=== PATIENT | male | born 1960 ===

== ENCOUNTER 2018-08-15 09:19 | Day surgery (SDC) | payer BC ==
[2018-08-13 12:20] VITALS: BMI 33.3
[2018-08-15 10:13] LABS: BASO % 0.7 % (0.0-2.0); EOS # 0.2 K/uL (0.0-0.7); EOS % 2.9 % (0.0-4.0); HEMOGLOBIN 14.9 g/dL (12.0-18.0); LYMPH # 2.1 K/uL (1.0-4.3); LYMPH % 32.5 % (20.0-40.0); MEAN CELL VOLUME 87.8 fL (80.0-94.0); MEAN CORPUSCULAR HEMOGLOBIN 30.2 pg (27.0-31.0); MEAN CORPUSCULAR HGB CONC 34.4 g/dL (33.0-37.0); MEAN PLATELET VOLUME 9.7 fL (7.2-11.7); MONO # 0.5 K/uL (0.0-0.8); MONO % 8.2 % (0.0-10.0); NEUT # 3.6 K/uL (1.8-7.0); NEUT % 55.7 % (50.0-75.0); NRBC % 0.2 % (0.0-2.0); RBC 4.94 Mil/uL (4.40-5.90); RED CELL DISTRIBUTION WIDTH 14.2 % (11.5-14.5); WHITE BLOOD COUNT 6.5 K/uL (4.8-10.8)
[2018-08-15 10:26] LABS: BLOOD UREA NITROGEN 20 mg/dL (9-20); CALCIUM 9.3 mg/dl (8.6-10.4); GFR NON-AFRICAN AMERICAN > 60
[2018-08-15] MEDS ORDERED: Ciprofloxacin 400mg/200ml D5W 0 MG/0 ML BAG IVPB ONE (10:45)
[2018-08-15] MEDS ORDERED: Iohexol 240 (50 ml) ONE (10:46)
[2018-08-15] MEDS ORDERED: Lidocaine 2% Jelly (Uro-Jet) ONE (10:46)
[2018-08-15] MEDS ORDERED: cefTRIAXone 1 gm 1 GM/100 ML BAG IVPB ONE (10:46)
[2018-08-15] MEDS ORDERED: Midazolam 2 MG/2 ML VIAL ONE (11:24)
[2018-08-15] MEDS ORDERED: Propofol 10 mg/ml Inj (20 ML) ONE (11:25)
[2018-08-15] MEDS ORDERED: HYDROmorphone 0.5 mg/0.5 ml ISec IVP PRN (12:36)
[2018-08-15] MEDS: HYDROmorphone 0.5 mg/0.5 ml ISec IVP PRN ×4 (12:56→13:26)
[2018-08-15 15:45] VITALS: BP 131/79; PULSE 85; RESP 18; TEMP 97.9; O2SAT 97
--- NOTE | 2018-08-16 14:29 | CARD ---
APPROVED REPORT Date of service: 08/15/2018 EKG Measurement Heart [id number] [place] 178P [id number] <Conclusion> Normal sinus rhythm Normal ECG
--- NOTE | 2018-09-03 21:43 | OP ---
PROCEDURE DATE: 08/15/2018 PREOPERATIVE DIAGNOSES: Bladder stone, prostatic hypertrophy. POSTOPERATIVE DIAGNOSES: Bladder stone, prostatic hypertrophy, and multiple urethral strictures. PROCEDURES: Cystoscopy, dilatation and vesicolithotripsy. DESCRIPTION OF PROCEDURE: While the patient in lithotomy position and after starting anesthesia, genitalia were prepped and draped in a sterile fashion. Cysto was performed under direct vision which revealed the patient has submeatal stenosis, dilated. Also multiple strictures dilated. The bladder itself trabeculated. No tumor. Stone sitting behind the median lobe and moving around has irregular shape. The prostate large median lobe blocking the trigonal area and bilateral lobe enlargement. Prostatic urethra 4.5 cm. Using holmium laser, the stone was fragmented into multiple pieces and evacuated. The patient tolerated the procedure well. After removing the stone, the patient had bleeding and irrigated a few times. A #22 two-way Doan was inserted. The patient was transferred to the recovery room in stable condition. Marilyn Roy MD
== END 2018-08-15 15:45 | disposition home or self-care (01) ==
LOC: C.SDS 09:19
PROVIDERS: ATTEND Specialist
DX: N40.1 Benign prostatic hyperplasia with lower urinary tract symptoms (principal); N20.1 Calculus of ureter; N21.0 Calculus in bladder; N40.0 Benign prostatic hyperplasia without lower urinary tract symptoms; N35.919 Unspecified urethral stricture, male, unspecified site
CPT/HCPCS: 36415; 51050; 80048; 82365; 85025; 88300; 93005; A4358; J0696; J1170; J2405

== ENCOUNTER 2018-08-16 09:39 | Emergency (ER) | payer BC ==
[2018-08-16 09:39] VITALS: BMI 33.3
[2018-08-16 09:50] VITALS: BP 160/88; PULSE 99; RESP 19; TEMP 99.1; O2SAT 95
--- NOTE | 2018-08-16 10:38 | C.PDOC ---
History Of Present Illness 57 year old male presents to ED for antonio removal. Patient had antonio placed 2 days ago by urologist for bladder stone. States he was instructed to remove antonio at home, but he was afraid to do it on his own so he came here to the ER. Patient denies any other complaints. Time Seen by Provider: 08/16/18 09:57 Chief Complaint (Nursing): Male Genitourinary History Per: Patient History/Exam Limitations: no limitations Onset/Duration Of Symptoms: Days Current Symptoms Are (Timing): Still Present Past Medical History Reviewed: Historical Data, Nursing Documentation, Vital Signs Vital Signs: Last Vital Signs Temp 99.1 F 08/16/18 09:49 Pulse 99 H 08/16/18 09:49 Resp 19 08/16/18 09:49 BP 160/88 H 08/16/18 09:49 Pulse Ox 95 08/16/18 09:49 Primary Care Provider: Bob Peterson Surg - Medical History PMH: HTN Denies: Chronic Kidney Disease Surgical History: - blur Group Procedures INJECT/INFUSE NEC (09/14/06) Family History: States: No Known Family Hx - Social History Hx Alcohol Use: No Hx Substance Use: No - Immunization History Hx Tetanus Toxoid Vaccination: No Hx Influenza Vaccination: No Hx Pneumococcal Vaccination: No Review Of Systems Except As Marked, All Systems Reviewed And Found Negative. Constitutional: Negative for: Fever Gastrointestinal: Negative for: Nausea, Vomiting Genitourinary: Positive for: Other (antonio) Physical Exam - Physical Exam Appears: Non-toxic, No Acute Distress Skin: Warm, Dry Head: Atraumatic, Normacephalic Eye(s): bilateral: Normal Inspection Oral Mucosa: Moist Neck: Supple Cardiovascular: Rhythm Regular Respiratory: Normal Breath Sounds Gastrointestinal/Abdominal: Soft, No Tenderness Extremity: Bilateral: Atraumatic, Normal ROM Neurological/Psych: Oriented x3, Normal Speech ED Course And Treatment O2 Sat by Pulse Oximetry: 95 (RA) Pulse Ox Interpretation: Normal Progress Note: Urine is clear with mild pinkish color. Patient states he feels fine. Antonio was removed with no complications. Patient will be discharged home. Disposition - Disposition Disposition: HOME/ ROUTINE Disposition Time: 10:38 Condition: STABLE Additional Instructions: follow up with PMD and Urologist as previously instructed. Return to ED if feel worse. Instructions: Antonio Catheter, Male Forms: [employer] (Hong Konger) - Clinical Impression Clinical Impression: Encounter for Antonio catheter removal - PA / CLAY MOLDER / Resident Statement MD/DO has reviewed & agrees with the documentation as recorded. - Scribe Statement The provider has reviewed the documentation as recorded by the Scribe Nadja Howell All medical record entries made by the Scribe were at my direction and personally dictated by me. I have reviewed the chart and agree that the record accurately reflects my personal performance of the history, physical exam, medical decision making, and the department course for this patient. I have also personally directed, reviewed, and agree with the discharge instructions and disposition.
== END 2018-08-16 10:42 | disposition home or self-care (01) ==
LOC: C.ER 09:39
DX: Z46.6 Encounter for fitting and adjustment of urinary device (principal)

== ENCOUNTER 2018-09-06 19:28 | Inpatient (IN) | payer BC ==
[2018-09-06 19:29] VITALS: BMI 33.3
--- NOTE | 2018-09-06 20:22 | C.PDOC ---
History Of Present Illness 58 year old male presents to ED with complaint of persistent scrotal pain for the past week. Patient was previously on an unknown antibiotic prescribed by Dr. Degroot. Patient was evaluated for the same symptoms at [facility] on 09/05 for the same symptoms and started on cipro. Patient has no relief with Motrin 800 mg or Tylenol. Patient denies fever, nausea, and vomiting. PERSIST SCROTAL PAIN X 1 WEEK. WAS ON PREVIOUS UNK ABX BY DR DEGROOT, EVAL @ [facility] 09/05 FOR SAME STARTED ON CIPRO. NO PAIN RELIEF W MOTRIN 800 MG, TYLENOL. NO FEVER, NV. EXAM MILD DIST NONTOXIC +SCROTAL SWELL NO LESIONS, DC REMAINDER NEG Time Seen by Provider: 09/06/18 20:13 Chief Complaint (Nursing): Male Genitourinary History Per: Patient History/Exam Limitations: no limitations Onset/Duration Of Symptoms: Days (7) Current Symptoms Are (Timing): Still Present Quality Of Discomfort: "Pain" Associated Symptoms: denies: Fever, Nausea, Vomiting Alleviating Factors: denies: OTC Meds Past Medical History Reviewed: Historical Data, Nursing Documentation, Vital Signs Vital Signs: Last Vital Signs Temp 98.6 F 09/06/18 19:36 Pulse 87 09/06/18 19:36 Resp 20 09/06/18 19:36 BP 144/80 09/06/18 19:36 Pulse Ox 96 09/06/18 19:36 Primary Care Provider: Bob Peterson Surg - Medical History PMH: HTN Denies: Chronic Kidney Disease Surgical History: No Surg Hx - [facility] Procedures INJECT/INFUSE NEC (09/14/06) Family History: States: Unknown Family Hx - Social History Hx Alcohol Use: No Hx Substance Use: No - Immunization History Hx Tetanus Toxoid Vaccination: No Hx Influenza Vaccination: No Hx Pneumococcal Vaccination: No Review Of Systems Except As Marked, All Systems Reviewed And Found Negative. Genitourinary: Positive for: Scrotal Pain Physical Exam - Physical Exam Appears: Non-toxic, Other (mild distress) Skin: Normal Color, Warm, Dry Head: Atraumatic, Normacephalic Eye(s): bilateral: Normal Inspection Oral Mucosa: Moist Neck: Normal ROM, Supple Chest: Symmetrical, No Deformity Cardiovascular: Rhythm Regular, No Murmur Respiratory: No Accessory Muscle Use, No Rales, No Rhonchi, No Wheezing, Other (NARD) Gastrointestinal/Abdominal: Soft, No Tenderness Male Genital: Scrotal Swelling, No Other (lesions or discharge) Extremity: Capillary Refill (<2 seconds) Extremity: Bilateral: Atraumatic, Normal Color And Temperature, Normal ROM Pulses: Left Dorsalis Pedis: Normal, Right Dorsalis Pedis: Normal Neurological/Psych: Oriented x3, Normal Speech, Normal Cognition, Normal Motor, Normal Sensation Gait: Steady ED Course And Treatment - Laboratory Results Result Diagrams: 09/06/18 21:33 09/06/18 21:33 O2 Sat by Pulse Oximetry: 96 (in RA) Pulse Ox Interpretation: Normal Progress Note: BMP, CBC, and UA ordered for patient. Testicular US ordered for patient. Patient given Morphine IVP. Progress - Re-Evaluation Re-evaluation Note: 09/06/18 20:19 DR DEGROOT REQUESTING REPEAT TEST US, LABS. AGREES W PAIN MGMT PLAN 09/06/18 22:46 US REPORT REVIEWED. RECUR TEST PAIN, PT REFUSING DC HOME. PERSIST ELEVATED WBC DESPITE [address] DEGROOT 09/06/18 22:59 D/W DR DEGROOT WILL ADMIT - Data Reviewed Data Reviewed: Lab, Diagnostic imaging, Old records Disposition Counseled Patient/Family Regarding: Studies Performed, Diagnosis - Disposition Disposition: HOSPITALIZED Disposition Time: 22:59 Condition: STABLE Forms: [facility] (Hungarian) - POA Present On Arrival: None - Clinical Impression Clinical Impression: Epididymitis, Intractable pain - Scribe Statement The provider has reviewed the documentation as recorded by the Scribe (Addie Daniels) All medical record entries made by the Scribe were at my direction and personally dictated by me. I have reviewed the chart and agree that the record accurately reflects my personal performance of the history, physical exam, medical decision making, and the department course for this patient. I have also personally directed, reviewed, and agree with the discharge instructions and disposition.
[2018-09-06 21:39] LABS: BASO % 0.3 % (0.0-2.0); EOS % 0.3 % (0.0-4.0); HEMOGLOBIN 13.9 g/dL (12.0-18.0); LYMPH # 1.2 K/uL (1.0-4.3); LYMPH % 7.5 % (20.0-40.0); MEAN CELL VOLUME 87.1 fL (80.0-94.0); MEAN CORPUSCULAR HGB CONC 33.3 g/dL (33.0-37.0); MEAN PLATELET VOLUME 8.9 fL (7.2-11.7); MONO # 1.1 K/uL (0.0-0.8); MONO % 6.6 % (0.0-10.0); NEUT # 13.5 K/uL (1.8-7.0); NEUT % 85.3 % (50.0-75.0); PLATELET COUNT 247 K/uL (130-400); RBC 4.78 Mil/uL (4.40-5.90); RED CELL DISTRIBUTION WIDTH 14.4 % (11.5-14.5); WHITE BLOOD COUNT 15.8 K/uL (4.8-10.8)
[2018-09-06 21:51] LABS: BLOOD UREA NITROGEN 13 mg/dL (9-20); CALCIUM 9.1 mg/dl (8.6-10.4); GFR NON-AFRICAN AMERICAN > 60
[2018-09-06 22:32] LABS: LYMPHOCYTE 4 % (20-40); MONOCYTE 3 % (0-10); NEUTROPHIL 93 % (50-75); PLATELET ESTIMATE NORMAL (NORMAL); TOTAL CELLS COUNTED 100
[2018-09-06] MEDS ORDERED: Oxycodone/Acetaminophen 5/325 mg Tab PO STA (22:46)
[2018-09-06] MEDS ORDERED: Oxycodone/Acetaminophen 5/325 mg Tab ONE (23:12)
[2018-09-06] MEDS ORDERED: Ciprofloxacin 400mg/200ml D5W 400 MG/200 ML BAG IVPB SCH (23:30)
[2018-09-06] MEDS: Dextrose 5%/0.45% NS 1,000 ML IV SCH (23:51)
[2018-09-06] MEDS ORDERED: Ciprofloxacin 400mg/200ml D5W 400 MG/200 ML BAG IVPB ONE (23:51)
[2018-09-07] MEDS ORDERED: Oxycodone/Acetaminophen 5/325 mg Tab PO SCH
[2018-09-07] MEDS ORDERED: Morphine 4 MG/ML VIAL ONE (00:12)
[2018-09-07] MEDS: Dextrose 5%/0.45% NS 1,000 ML IV SCH ×3 (08:05→20:10)
[2018-09-07] MEDS: Oxycodone/Acetaminophen 5/325 mg Tab PO PRN ×2 (08:27→15:53)
[2018-09-07] MEDS ORDERED: cefTRIAXone IV 1 gm in Dextros 50 ML IVPB SCH (10:00)
--- NOTE | 2018-09-07 11:51 | US ---
Date of service: 09/06/2018 HISTORY: PAIN SWELLING TECHNIQUE: Realtime sonography through the scrotum with color and doppler flow. COMPARISON: None Available. FINDINGS: RIGHT TESTICLE: Measures 4.8 x 3.4 x 3 cm. Normal echotexture and flow. RIGHT EPIDIDYMIS: Epididymal head measures 1.3 x 0.84 cm. There is a epididymal cyst measures 0.5 x 0.8 x 0.9 centimeter. There is also complex cyst at the tail of the epididymis measures 2.1 x 1.8 x 2.2 centimeter. There is a partially calcified lesion at or adjacent to the epididymis measures 1.1 x 1 x 0.9 centimeter. LEFT TESTICLE: Measures 5.1 x 2.2 x 3.2 cm. Normal echotexture and flow. LEFT EPIDIDYMIS: Epididymal head measures 1.3 x 0.8 cm. Grossly unremarkable appearance with normal flow. HYDROCELE: There is a complex hydrocele with septation noted in the right scrotum. There is also complex hydrocele in the left scrotum with low-level echoes. VARICOCELE: None. OTHER FINDINGS: None. IMPRESSION: Heterogeneous right epididymis enlarged and demonstrate hyperemia and contains complex lesions. Findings suspicious for epididymitis. Partially calcified lesion at or adjacent to the right epididymis may represent a sequela of prior infection or hematoma. Complex moderate amount of hydrocele noted contains septation on the right side of the scrotum and low-level echoes on the left side. Findings are also likely represent sequela of epididymitis. Thickening of the scrotal skin. Preliminary report was submitted by [facility] Radiology contains concordant findings.
--- NOTE | 2018-09-07 16:31 | CP.PCM.CON ---
History of Present Illness - History of Present Illness History of Present Illness: 58 year old male presents to ED with complaint of persistent scrotal pain and swelling for the past week. Patient is post op cystoscopy and bladder stone surgery as out pt Patient was previously on an unknown antibiotic prescribed by Dr. Keys. Patient was evaluated for the same symptoms [place] [facility] [place] for the same symptoms and started on cipro. Patient has no relief with Motrin 800 mg or Tylenol. Patient denies fever, nausea, and vomiting. Referred for ID eval and antibiotic management as he failed out pt rx PMH HTN SH non drinker non smoker FH N/C NKDA Review of Systems - Review of Systems All systems: reviewed and no additional remarkable complaints except - Constitutional Constitutional: As Per HPI - EENT Eyes: absent: As Per HPI, Blind Spots, Blurred Vision, Change in Vision, Decreased Night Vision, Diplopia, Discharge, Dry Eye, Exophthalmos, Floaters, I rritation, Itchy Eyes, Loss of Peripheral Vision, Pain, Photophobia, Requires Corrective Lenses, Sees Flashes, Spots in Vision, Tunnel Vision, Other Visual Disturbances, Loss of Vision, Other Ears: absent: As Per HPI, Decreased Hearing, Ear Discharge, Ear Pain, Tinnitus, Abnormal Hearing, Disequilibrium, Dizziness, Other Nose/Mouth/Throat: absent: As Per HPI, Epistaxis, Nasal Congestion, Nasal Discharge, Nasal Obstruction, Nasal Trauma, Nose Pain, Post Nasal Drip, Sinus Pain, Sinus Pressure, Bleeding Gums, Change in Voice, Dental Pain, Dry Mouth, Dysphagia, Halitosis, Hoarsness, Lip Swelling, Mouth Lesions, Mouth Pain, Odynophagia, Sore Throat, Throat Swelling, Tongue Swelling, Facial Pain, Neck Pain, Neck Mass, Other - Cardiovascular Cardiovascular: absent: As Per HPI, Acrocyanosis, Chest Pain, Chest Pain at Rest, Chest Pain with Activity, Claudication, Diaphoresis, Dyspnea, Dyspnea on Exertion, Edema, Irregular Heart Rhythm, Pain Radiating to Arm/Neck/Jaw, Leg Edema, Leg Ulcers, Lightheadedness, Orthopnea, Palpitations, Paroxysmal Nocturnal Dyspnea, Pedal Edema, Radiating Pain, Rapid Heart Rate, Slow Heart Rate, Syncope, Other - Respiratory Respiratory: absent: As Per HPI, Cough, Dyspnea, Hemoptysis, Dyspnea on Exertion, Wheezing, Snoring, Stridor, Pain on Inspiration, Chest Congestion, Excessive Mucous Production, Change in Mucous Color, Pain with Coughing, Other - Gastrointestinal Gastrointestinal: absent: As Per HPI, Abdominal Pain, Belching, Bloating, Change in Bowel Habits, Change in Stool Character, Coffee Ground Emesis, Constipation, Cramping, Diarrhea, Dyspepsia, Dysphagia, Early Satiety, Excessive Flatus, Fecal Incontinence, Heartburn, Hematemesis, Hematochezia, Loose Stools, Melena, Nausea, Odynophagia, Temesmus, Vomiting, Other - Genitourinary Genitourinary: As Per HPI - Musculoskeletal Musculoskeletal: absent: As Per HPI, Abnormal Gait, Arthralgias, Atrophy, Back Pain, Deformity, Joint Swelling, Limited Range of Motion, Loss of Height, Muscle Cramps, Muscle Weakness, Myalgias, Neck Pain, Numbness, Radiating Pain into Limb, Stiffness, Tingling, Other - Integumentary Integumentary: absent: As Per HPI, Acne, Alopecia, Bleeding Lesions, Change in Hair, Change in Nails, Change in Pigmentation, Changing Lesions, Dry Skin, Erythema, Furuncle, Hirsutism, Lesions, New Lesions, Non-Healing Lesions, Photosensitivity, Pruritus, Rash, Skin Pain, Skin Ulcer, Sores, Striae, Swelling, Unusual Bruising, Wounds, Jaundice, Other - Neurological Neurological: absent: As Per HPI, Abnormal Gait, Abnormal Hearing, Abnormal Movements, Abnormal Speech, Behavioral Changes, Burning Sensations, Confusion, Convulsions, Disequilibrium, Dizziness, Numbness, Focal Weakness, Frequent Falls, Headaches, Lack of Coordination, Loss of Vision, Memory Loss, Paresthesias, Radicular Pain, Restless Legs, Sensory Deficit, Syncope, Tingling, Tremor, Vertigo, Weakness, Other Visual Disturbances, Other - Psychiatric Psychiatric: absent: As Per HPI, Abnormal Sleep Pattern, Anhedonia, Anxiety, Auditory Hallucinations, Behavioral Changes, Change in Appetite, Change in Libido, Confusion, Depression, Difficulty Concentrating, Hallucinations, Homicidal Ideation, Hopelessness, Irritability, Memory Loss, Mood Swings, Panic Attacks, Paranoia, Suicidal Ideation, Visual Hallucinations, Tactile Hallucinations, Other - Endocrine Endocrine: absent: As Per HPI, Change in Body Appearance, Change in Libido, Cold Intolorance, Deepening of Voice, Excessive Sweating, Fatigue, Flushing, Heat Intolorance, Increase in Ring/Shoe/Hat Size, Palpitations, Polydipsia, Polyphagia, Polyuria, Other - Hematologic/Lymphatic Hematologic: absent: As Per HPI, Easy Bleeding, Easy Bruising, Lymphadenopathy, Other Past Patient History - Infectious Disease Hx of Infectious Diseases: None - Past Medical History & Family History Past Medical History?: Yes - Past Social History Smoking Status: Former Smoker - CARDIAC Hx Hypertension: Yes - PULMONARY Hx Respiratory Disorders: No - NEUROLOGICAL Hx Neurological Disorder: No - HEENT Hx HEENT Problems: No - RENAL Hx Chronic Kidney Disease: No - ENDOCRINE/METABOLIC Hx Endocrine Disorders: No - HEMATOLOGICAL/ONCOLOGICAL Hx Blood Disorders: No - INTEGUMENTARY Hx Dermatological Problems: No - MUSCULOSKELETAL/RHEUMATOLOGICAL Hx Musculoskeletal Disorders: No - GASTROINTESTINAL Hx Gastrointestinal Disorders: No - GENITOURINARY/GYNECOLOGICAL Hx Genitourinary Disorders: Yes Hx Bladder Stone: Yes Hx Prostate Problems: Yes (BPH) - PSYCHIATRIC Hx Substance Use: No - SURGICAL HISTORY Hx Surgeries: Yes Other/Comment: HX: CYSTOSCOPY, EVACUATION OF BLADDER STONE, FULGURATION PROSTATIC BLEEDING(05/27/17). - ANESTHESIA Hx Anesthesia: Yes Hx Anesthesia Reactions: No Hx Malignant Hyperthermia: No Meds Allergies/Adverse Reactions: Allergies Allergy/AdvReac Type Severity Reaction Status Date / Time No Known Allergies Allergy Verified 09/06/18 19:44 - Medications Medications: Current Medications Hydromorphone HCl (Dilaudid) 2 mg IVP Q4 PRN PRN Reason: Pain, severe (8-10) Dextrose/Sodium Chloride (Dextrose 5%/0.45% Ns 1000 Ml) 1,000 mls @ 125 mls/hr IV .Q8H SKIP Last Admin: 09/07/18 08:05 Dose: 125 mls/hr Meropenem 1 gm/ Sodium (Chloride) 100 mls @ 100 mls/hr IVPB Q8H SKIP; Protocol Oxycodone/Acetaminophen (Percocet 5/325 Mg Tab) 2 tab PO Q6H PRN PRN Reason: Pain, moderate (4-7) Stop: 09/10/18 00:15 Last Admin: 09/07/18 15:53 Dose: 2 tab Physical Exam - Constitutional Appears: Non-toxic, No Acute Distress, Chronically Ill - Head Exam Head Exam: ATRAUMATIC, NORMOCEPHALIC - Eye Exam Eye Exam: PERRL. absent: Scleral icterus - ENT Exam ENT Exam: Mucous Membranes Dry, Normal External Ear Exam - Neck Exam Neck exam: Negative for: Lymphadenopathy - Respiratory Exam Respiratory Exam: Decreased Breath Sounds, Clear to Auscultation Bilateral - Cardiovascular Exam Cardiovascular Exam: REGULAR RHYTHM, +S1, +S2 - GI/Abdominal Exam GI & Abdominal Exam: Diminished Bowel Sounds, Soft, Tenderness - Rectal Exam Rectal Exam: Deferred - Exam Exam: Scrotal Swelling, Bladder Distension - Extremities Exam Extremities exam: Positive for: pedal pulses present. Negative for: calf tenderness, pedal edema, tenderness - Back Exam Back exam: absent: CVA tenderness (L), CVA tenderness (R) - Neurological Exam Neurological exam: Alert, CN II-XII Intact, Oriented x3, Reflexes Normal - Psychiatric Exam Psychiatric exam: Depressed - Skin Skin Exam: Dry, Intact Results - Vital Signs Recent Vital Signs: Last Vital Signs Temp 98.2 F 09/07/18 15:59 Pulse 82 09/07/18 15:59 Resp 20 09/07/18 15:59 BP 149/71 09/07/18 15:59 Pulse Ox 96 09/07/18 15:59 - Labs Result Diagrams: 09/06/18 21:33 09/06/18 21:33 Labs: Laboratory Results - last 24 hr 09/06/18 09/06/18 21:33 21:33 WBC 15.8 H D RBC 4.78 Hgb 13.9 Hct 41.6 MCV 87.1 MCH 29.0 MCHC 33.3 RDW 14.4 Plt Count 247 MPV 8.9 Neut % (Auto) 85.3 H Lymph % (Auto) 7.5 L [place] % (Auto) 6.6 Eos % (Auto) 0.3 Baso % (Auto) 0.3 Neut # (Auto) 13.5 H Lymph # (Auto) 1.2 [place] # (Auto) 1.1 H Eos # (Auto) 0.0 Baso # (Auto) 0.0 Neutrophils % (Manual) 93 H Lymphocytes % (Manual) 4 L Monocytes % (Manual) 3 Platelet Estimate Normal Sodium 135 Potassium 3.5 L Chloride 100 Carbon Dioxide 25 Anion Gap 14 BUN 13 Creatinine 0.7 L Est GFR ( Amer) > 60 Est GFR (Non-Af Amer) > 60 Random Glucose 140 H D Calcium 9.1 Assessment & Plan (1) Epididymitis Status: Acute (2) Intractable pain Status: Acute - Assessment and Plan (Free Text) Assessment: cystitis epididimo orchitis hydrocoele failure of out pt rx for UTI add Merrem for MDRO empirically
[2018-09-07] MEDS: Meropenem 1 GM in Sodium Chloride 0.9% 100 ML IVPB SCH (17:33)
[2018-09-07 19:19] LABS: SQUAMOUS EPITHIAL < 1 /hpf (0-5); URINE BILIRUBIN NEGATIVE (NEGATIVE); URINE BLOOD 2+ (NEGATIVE); URINE CLARITY Clear (Clear); URINE COLOR Yellow (YELLOW); URINE GLUCOSE (UA) NORMAL (Normal); URINE LEUKOCYTE ESTERASE NEG Leu/uL (Negative); URINE PROTEIN NEGATIVE (NEGATIVE); URINE UROBILINOGEN NORMAL mg/dL (0.2-1.0)
[2018-09-07] MEDS: Bisacodyl 5mg EC Tab PO SCH (22:00)
[2018-09-08] MEDS: Meropenem 1 GM in Sodium Chloride 0.9% 100 ML IVPB SCH ×3 (01:37→17:36)
[2018-09-08 08:23] LABS: HEMOGLOBIN 13.5 g/dL (12.0-18.0); MEAN CELL VOLUME 86.4 fL (80.0-94.0); MEAN CORPUSCULAR HEMOGLOBIN 29.7 pg (27.0-31.0); MEAN CORPUSCULAR HGB CONC 34.4 g/dL (33.0-37.0); MEAN PLATELET VOLUME 9.2 fL (7.2-11.7); RBC 4.55 Mil/uL (4.40-5.90); WHITE BLOOD COUNT 18.8 K/uL (4.8-10.8)
[2018-09-08 08:51] LABS: ALB/GLOB RATIO 1.2 (1.0-2.1); ALBUMIN 3.9 g/dL (3.5-5.0); ALT/SGPT 50 U/L (21-72); AST/SGOT 29 U/L (17-59); BLOOD UREA NITROGEN 14 mg/dL (9-20); CALCIUM 8.4 mg/dl (8.6-10.4); GFR NON-AFRICAN AMERICAN > 60
[2018-09-08] MEDS ORDERED: Magnesium Hydroxide Susp 30 ml UD PO ONE (10:59)
[2018-09-08] MEDS ORDERED: Albuterol-Ipratrop 3 mg / 0.5 (3 ml) UD INH PRN (11:20)
[2018-09-08] MEDS: Enoxaparin 40 mg Syringe SC SCH (11:48)
[2018-09-08] MEDS: Dextrose 5%/0.45% NS 1,000 ML IV SCH (14:16)
[2018-09-08] MEDS: Oxycodone/Acetaminophen 5/325 mg Tab PO PRN (17:34)
--- NOTE | 2018-09-08 19:24 | PN ---
DATE: 09/08/2018 The patient was admitted with intractable pain and right epididymitis with elevated white count, started on pain medication, did not respond to the regular Cipro IV, changed to Merrem and Vibramycin by Dr. Ren. His white count on admission was 15, today his white count went up to 18 and the patient still have severe pain and swelling of the scrotum increased with edema. The patient is voiding well, cannot move much because of the severe pain. Has constipation due to the codeine for the pain management. We will start him on the prophylactic Lovenox and sequence leg pressure, continue the IV, continue the antibiotics IV and follow up his CBC. The patient need to be an inpatient because he has severe infection, elevated white count and he is on IV antibiotics and need severe pain management. Marilyn Roy MD
[2018-09-08] MEDS: Bisacodyl 5mg EC Tab PO SCH (22:10)
[2018-09-09] MEDS: Meropenem 1 GM in Sodium Chloride 0.9% 100 ML IVPB SCH ×3 (01:05→17:37)
[2018-09-09] MEDS: Dextrose 5%/0.45% NS 1,000 ML IV SCH ×2 (04:45→21:33)
--- NOTE | 2018-09-09 07:15 | HP ---
CHIEF COMPLAINT: Severe right testicular pain, regular pain medicine could not control the pain, swelling of the right testicle for over eight days. PRESENT HISTORY: The patient has recent history of right epididymitis and was seen in the medical center before. They diagnosed him after ultrasound with severe epididymitis versus small hydrocele, treated with antibiotics and Motrin, did not respond. Last night, he started having severe pain, not controlled by any medication, came to the ER, evaluated. His white count was over 15,000 and the scrotal ultrasound revealed right epididymitis, swelling of the right testicle with mild reactive hydrocele. The patient has history of bladder stone, history of urethral stricture and large prostatic hypertrophy. He is on intermittent catheterization which he has had for years. One month ago, the patient had a stone removed from the bladder. He is voiding better than before, but he is still using catheterization and he is voiding with weak stream and frequency. No dysuria. Last urine culture was done in my office, it showed low growth of bacteria. ALLERGIES: NOT ALLERGIC TO ANY MEDICATION. PREVIOUS HISTORY: Except for the history of the prostatic hypertrophy and recurrent bladder stone, no surgical procedure was done before. FAMILY HISTORY: Unremarkable. REVIEW OF SYSTEMS: Unremarkable. PHYSICAL EXAMINATION: GENERAL: This patient in severe pain, not responding to even morphine. HEAD AND NECK: Within normal limits. CHEST: Clear. GENITOURINARY: The patient was in my office three days ago with same right testicular pain with swelling of the right testicle, typical epididymitis, he responded to medication in the beginning, but he is not responding to any pain medicine at this time. The patient given morphine in the ER and that has controlled the pain partially. Left testicle within normal limits and prostate large. Previous exam show over 90 g prostate. IMPRESSION: Right epididymitis, uncontrolled pain with regular medication, history of prostatic hypertrophy and outlet obstruction, question urinary tract infection. PLAN: Pain medications, antibiotics, Infection Disease consult and followup. Marilyn Roy MD
[2018-09-09 07:22] LABS: BASO % 0.2 % (0.0-2.0); EOS # 0.1 K/uL (0.0-0.7); EOS % 0.7 % (0.0-4.0); HEMOGLOBIN 13.2 g/dL (12.0-18.0); LYMPH # 1.9 K/uL (1.0-4.3); LYMPH % 11.7 % (20.0-40.0); MEAN CELL VOLUME 86.5 fL (80.0-94.0); MEAN CORPUSCULAR HEMOGLOBIN 29.6 pg (27.0-31.0); MEAN CORPUSCULAR HGB CONC 34.2 g/dL (33.0-37.0); MEAN PLATELET VOLUME 8.2 fL (7.2-11.7); MONO # 1.4 K/uL (0.0-0.8); MONO % 8.3 % (0.0-10.0); NEUT # 13.1 K/uL (1.8-7.0); NEUT % 79.1 % (50.0-75.0); RBC 4.45 Mil/uL (4.40-5.90); RED CELL DISTRIBUTION WIDTH 14.5 % (11.5-14.5); WHITE BLOOD COUNT 16.5 K/uL (4.8-10.8)
[2018-09-09] MEDS: Enoxaparin 40 mg Syringe SC SCH (09:35)
--- NOTE | 2018-09-09 10:33 | CT ---
Date of service: 09/09/2018 PROCEDURE: CT HEAD WITHOUT CONTRAST. HISTORY: sudden onset of blurred vision COMPARISON: In knee TECHNIQUE: Axial computed tomography images were obtained through the head/brain without intravenous contrast. Radiation dose: Total exam DLP = 1105.96 mGy-cm. This CT exam was performed using one or more of the following dose reduction techniques: Automated exposure control, adjustment of the mA and/or kV according to patient size, and/or use of iterative reconstruction technique. FINDINGS: HEMORRHAGE: No intracranial hemorrhage. BRAIN: There are mild chronic microangiopathic changes. There is no mass, mass effect or abnormal extra-axial fluid collection. There is no territorial infarction. The midline sagittal structures are normal. VENTRICLES: The ventricles are normal in size, shape and configuration. CALVARIUM: There is no calvarial fracture or extracranial soft tissue swelling. PARANASAL SINUSES: Predominantly clear. MASTOID AIR CELLS: Predominantly clear. OTHER FINDINGS: None. IMPRESSION: No acute intracranial abnormality.If there is a persistent focal neurologic deficit and an ongoing clinical concern for acute infarction, an MRI of the brain without intravenous contrast would be a more sensitive modality for evaluation of hyperacute/acute ischemic infarction. Mild chronic microangiopathic changes and mild age-related global parenchymal volume loss.
--- NOTE | 2018-09-09 12:18 | CP.PCM.PN ---
Subjective - Date & Time of Evaluation Date of Evaluation: 09/10/18 Time of Evaluation: 07:00 - Subjective Subjective: slow progress'c/o pain bilateral testes Objective - Vital Signs/Intake and Output Vital Signs (last 24 hours): Temp Pulse Resp BP Pulse Ox 97.8 F 94 H 20 115/70 94 L 09/09/18 09:00 09/09/18 09:00 09/09/18 08:27 09/09/18 09:00 09/09/18 08:27 Intake and Output: 09/09/18 09/09/18 06:59 18:59 Intake Total 920 Balance 920 - Medications Medications: Current Medications Albuterol/Ipratropium (Duoneb 3 Mg/0.5 Mg (3 Ml) Ud) 3 ml INH RQ6 PRN PRN Reason: atelectasis Bisacodyl (Dulcolax) 10 mg PO HS SKIP Last Admin: 09/08/18 22:10 Dose: 10 mg Doxycycline Hyclate (Doryx) 100 mg PO Q12H SKIP; Protocol Last Admin: 09/09/18 09:34 Dose: 100 mg Enoxaparin Sodium (Lovenox) 40 mg SC DAILY SKIP Last Admin: 09/09/18 09:35 Dose: 40 mg Hydromorphone HCl (Dilaudid) 2 mg IVP Q4 PRN PRN Reason: Pain, severe (8-10) Last Admin: 09/08/18 06:12 Dose: 2 mg Meropenem 1 gm/ Sodium (Chloride) 100 mls @ 100 mls/hr IVPB Q8H SKIP; Protocol Last Admin: 09/09/18 09:35 Dose: 100 mls/hr Dextrose/Sodium Chloride (Dextrose 5%/0.45% Ns 1000 Ml) 1,000 mls @ 60 mls/hr IV .[id number] SKIP Last Admin: 09/09/18 04:45 Dose: Not Given Oxycodone/Acetaminophen (Percocet 5/325 Mg Tab) 2 tab PO Q6H PRN PRN Reason: Pain, moderate (4-7) Stop: 09/10/18 21:25 Last Admin: 09/08/18 17:34 Dose: 2 tab - Labs Labs: 09/09/18 07:09 09/08/18 08:07 - Constitutional Appears: Non-toxic, Chronically Ill - Head Exam Head Exam: ATRAUMATIC, NORMAL INSPECTION, NORMOCEPHALIC - Eye Exam Eye Exam: EOMI, Normal appearance, PERRL Pupil Exam: NORMAL ACCOMODATION, PERRL - ENT Exam ENT Exam: Mucous Membranes Moist, Normal Exam - Neck Exam Neck Exam: Full ROM, Normal Inspection. absent: Lymphadenopathy - Respiratory Exam Respiratory Exam: Clear to Ausculation Bilateral, NORMAL BREATHING PATTERN - Cardiovascular Exam Cardiovascular Exam: REGULAR RHYTHM, +S1, +S2. absent: Murmur - GI/Abdominal Exam GI & Abdominal Exam: Soft, Normal Bowel Sounds. absent: Tenderness - Rectal Exam Rectal Exam: Deferred - Exam Exam: Scrotal Swelling - Extremities Exam Extremities Exam: Full ROM, Normal Capillary Refill, Normal Inspection. absent: Joint Swelling, Pedal Edema - Back Exam Back Exam: NORMAL INSPECTION - Neurological Exam Neurological Exam: Alert, Awake, CN II-XII Intact, Normal Gait, Oriented x3 - Psychiatric Exam Psychiatric exam: Normal Affect, Normal Mood - Skin Skin Exam: Dry, Intact, Normal Color, Warm Assessment and Plan (1) Epididymitis Status: Acute (2) Intractable pain Status: Acute - Assessment and Plan (Free Text) Assessment: cont IV rx failed out pt rx
[2018-09-09] MEDS ORDERED: Iohexol 240 (50 ml) PO ONE (13:30)
[2018-09-09] MEDS ORDERED: Iohexol 350mg/ml 100 ML ONE (15:53)
--- NOTE | 2018-09-09 18:24 | MRI ---
Date of service: 09/09/2018 PROCEDURE: MRI BRAIN WITHOUT CONTRAST HISTORY: sudden onset of double vision / blurred vision COMPARISON: CT head without contrast from 09/09/2018 TECHNIQUE: Multiplanar, multisequence MR images of the brain were obtained without intravenous contrast enhancement. FINDINGS: HEMORRHAGE: None DWI: No evidence of an acute or early subacute infarction. BRAIN PARENCHYMA: There are mild chronic microangiopathic changes. There is no mass, mass effect or abnormal extra-axial fluid collection. There is no territorial infarction. The midline sagittal structures are normal. VENTRICLES: There is mild age advanced global parenchymal volume loss and proportionate enlargement of the ventricles and cortical sulci. CRANIUM: Unremarkable. ORBITS: Grossly unremarkable. PARANASAL SINUSES/MASTOIDS: Clear VASCULAR SYSTEM: There are normal signal voids in the larger intracranial arteries. OTHER FINDINGS: None. IMPRESSION: No acute intracranial abnormality. Mild chronic microangiopathic changes and mild age advanced global parenchymal volume loss.
[2018-09-09] MEDS: Oxycodone/Acetaminophen 5/325 mg Tab PO PRN (19:34)
[2018-09-09] MEDS: Bisacodyl 5mg EC Tab PO SCH (21:33)
[2018-09-10] MEDS: Meropenem 1 GM in Sodium Chloride 0.9% 100 ML IVPB SCH ×3 (00:39→17:41)
[2018-09-10] MEDS: Enoxaparin 40 mg Syringe SC SCH (09:41)
--- NOTE | 2018-09-10 12:38 | CT ---
Date of service: 09/09/2018 PROCEDURE: CT Pelvis with contrast HISTORY: Rule out post interventional quite abcess, severe epididymitids , groin pain COMPARISON: None available. TECHNIQUE: Contiguous axial images of the pelvis with contrast. Coronal and sagittal reformats generated. Contrast dose: 74 cc Visipaque 320 contrast material. Radiation dose: Total exam DLP = 811.7 mGy-cm. This CT exam was performed using one or more of the following dose reduction techniques: Automated exposure control, adjustment of the mA and/or kV according to patient size, and/or use of iterative reconstruction technique. FINDINGS: BLADDER: Urinary bladder appears incompletely distended of which in part accounts for slight thick-walled appearance however muscular hypertrophy presumably contributes. The prostate gland is markedly enlarged and encroaches into the floor of the urinary bladder. Prostate gland is measures approximately 6.2 x 6.1 cm and exhibits heterogeneous parenchyma with scattered calcifications.. Findings likely due to BPH however clinical correlation with PSA recommended to exclude prostatic carcinoma. Note also that possibility of a lesion arising from the wall of the bladder floor cannot be excluded.. REPRODUCTIVE ORGANS: There is enlarged scrotum with subcutaneous scrotal edema; rule out cellulitis. There is also a moderate-sized right-sided hydrocele. There is any elliptical shaped complex soft tissue density which appears to contain both fluid and solid components measuring 7.4 x 5.2 cm.. Findings may represent orchitis and/or epididymis or possible abscess collection. VISUALIZED BOWEL: Evaluation of the bowel is somewhat limited due to incomplete visualization however note made of multiple colonic diverticula arising from the sigmoid and distal descending colon. Normal appendix. PERITONEUM: Unremarkable, as visualized. No free fluid. No free air. LYMPH NODES: Unremarkable. No enlarged lymph nodes. VASCULATURE: No aortic atherosclerotic calcification or mural plaque present. BONES: No fracture or focal lesion. OTHER FINDINGS: Small bilateral inguinal hernias right slightly larger than left with what appears represent granulation tissue and or fluid right more so than left. IMPRESSION: Enlarged scrotum with subcutaneous scrotal edema; rule out cellulitis. There is also a moderate-sized right-sided hydrocele. There is any elliptical shaped complex soft tissue density which appears to contain both fluid and solid components measuring 7.4 x 5.2 cm.. Findings may represent orchitis and/or epididymis or possible abscess collection
[2018-09-10] MEDS: Dextrose 5%/0.45% NS 1,000 ML IV SCH ×2 (13:15→15:15)
--- NOTE | 2018-09-10 17:19 | CP.PCM.PN ---
Subjective - Date & Time of Evaluation Date of Evaluation: 09/10/18 Time of Evaluation: 08:00 - Subjective Subjective: slow progress swelling and pain less cont rx for min 10-14 days Objective - Vital Signs/Intake and Output Vital Signs (last 24 hours): Temp Pulse Resp BP Pulse Ox 99.5 F 81 20 130/77 94 L 09/10/18 16:00 09/10/18 16:00 09/10/18 16:00 09/10/18 16:00 09/10/18 16:00 Intake and Output: 09/10/18 09/10/18 06:59 18:59 Intake Total 1100 1120 Output Total 800 400 Balance 300 720 - Medications Medications: Current Medications Albuterol/Ipratropium (Duoneb 3 Mg/0.5 Mg (3 Ml) Ud) 3 ml INH RQ6 PRN PRN Reason: atelectasis Last Admin: 09/09/18 13:30 Dose: 3 ml Bisacodyl (Dulcolax) 10 mg PO HS [facility] Last Admin: 09/09/18 21:33 Dose: Not Given Doxycycline Hyclate (Doryx) 100 mg PO Q12H SKIP; Protocol Last Admin: 09/10/18 09:41 Dose: 100 mg Enoxaparin Sodium (Lovenox) 40 mg SC DAILY [facility] Last Admin: 09/10/18 09:41 Dose: 40 mg Hydromorphone HCl (Dilaudid) 2 mg IVP Q4 PRN PRN Reason: Pain, severe (8-10) Last Admin: 09/08/18 06:12 Dose: 2 mg Meropenem 1 gm/ Sodium (Chloride) 100 mls @ 100 mls/hr IVPB Q8H [facility]; Protocol Last Admin: 09/10/18 09:42 Dose: 100 mls/hr Dextrose/Sodium Chloride (Dextrose 5%/0.45% Ns 1000 Ml) 1,000 mls @ 60 mls/hr IV .[id number] SKIP Last Admin: 09/10/18 15:15 Dose: Not Given Oxycodone/Acetaminophen (Percocet 5/325 Mg Tab) 2 tab PO Q6H PRN PRN Reason: Pain, moderate (4-7) Stop: 09/10/18 21:25 Last Admin: 09/09/18 19:34 Dose: 2 tab - Labs Labs: 09/09/18 07:09 09/08/18 08:07 - Constitutional Appears: Well, No Acute Distress, Chronically Ill - Head Exam Head Exam: ATRAUMATIC, NORMAL INSPECTION, NORMOCEPHALIC - Eye Exam Eye Exam: EOMI, Normal appearance, PERRL Pupil Exam: NORMAL ACCOMODATION, PERRL - ENT Exam ENT Exam: Mucous Membranes Moist, Normal Exam - Neck Exam Neck Exam: Full ROM, Normal Inspection. absent: Lymphadenopathy - Respiratory Exam Respiratory Exam: Clear to Ausculation Bilateral, NORMAL BREATHING PATTERN - Cardiovascular Exam Cardiovascular Exam: REGULAR RHYTHM, +S1, +S2. absent: Murmur - GI/Abdominal Exam GI & Abdominal Exam: Soft, Normal Bowel Sounds. absent: Tenderness - Rectal Exam Rectal Exam: NORMAL INSPECTION - Exam Exam: Scrotal Swelling External exam: NORMAL EXTERNAL EXAM - Extremities Exam Extremities Exam: Full ROM, Normal Capillary Refill, Normal Inspection. absent: Joint Swelling, Pedal Edema - Back Exam Back Exam: NORMAL INSPECTION - Neurological Exam Neurological Exam: Alert, Awake, CN II-XII Intact, Normal Gait, Oriented x3 - Psychiatric Exam Psychiatric exam: Normal Affect, Normal Mood - Skin Skin Exam: Dry, Intact, Normal Color, Warm Assessment and Plan (1) Epididymitis Status: Acute (2) Intractable pain Status: Acute (3) Orchitis and epididymitis Status: Acute - Assessment and Plan (Free Text) Assessment: cont rmpiric IV antibitics for 10 more days
[2018-09-10] MEDS: Bisacodyl 5mg EC Tab PO SCH (22:14)
[2018-09-11] MEDS: Meropenem 1 GM in Sodium Chloride 0.9% 100 ML IVPB SCH ×3 (01:52→16:58)
[2018-09-11] MEDS: Enoxaparin 40 mg Syringe SC SCH (10:05)
--- NOTE | 2018-09-11 13:05 | US ---
Date of service: 09/11/2018 HISTORY: f/u TECHNIQUE: Realtime sonography through the scrotum with color and doppler flow. COMPARISON: 09/06/2018. FINDINGS: RIGHT TESTICLE: Measures 4.4 x 3.6 x 2.9 cm. Normal echotexture and flow. RIGHT EPIDIDYMIS: Epididymal head measures 2.6 x 1.2 x 1.8 cm. There are calcifications in the head of the epididymis. There is a 3.0 x 3.4 x 4.1 cm heterogeneous complex predominantly hypoechoic lesion in the region of the tail of the epididymis, increased in size since the prior examination. There is mild peripheral increased vascularity. LEFT TESTICLE: Measures 5.2 x 2.1 x 3.0 cm. Normal echotexture and flow. LEFT EPIDIDYMIS: Epididymal head measures 1.3 x 0.9 x 1.5 cm. Grossly unremarkable appearance with normal flow. HYDROCELE: Again seen is a large complex septated right hydrocele. There is a small left hydrocele. VARICOCELE: None. OTHER FINDINGS: None. IMPRESSION: 1. Interval increase in size of complex lesion with mild peripheral increased vascularity in the tail of the right epididymis which now measures 3.0 x 3.4 x 4.1 cm. Findings are concern for phlegmon/developing abscess. 2. Redemonstration of large complex septated right hydrocele.
[2018-09-11] MEDS ORDERED: Oxycodone/Acetaminophen 5/325 mg Tab PO PRN (17:19)
--- NOTE | 2018-09-11 18:17 | CP.PCM.PN ---
Subjective - Date & Time of Evaluation Date of Evaluation: 09/11/18 Time of Evaluation: 09:00 - Subjective Subjective: c/o pain and swelling'IV rx renewed' Objective - Vital Signs/Intake and Output Vital Signs (last 24 hours): Temp Pulse Resp BP Pulse Ox 98.1 F 92 H 20 122/78 96 09/11/18 16:00 09/11/18 16:00 09/11/18 16:00 09/11/18 16:00 09/11/18 16:00 - Medications Medications: Current Medications Albuterol/Ipratropium (Duoneb 3 Mg/0.5 Mg (3 Ml) Ud) 3 ml INH RQ6 PRN PRN Reason: atelectasis Last Admin: 09/09/18 13:30 Dose: 3 ml Bisacodyl (Dulcolax) 10 mg PO HS SKIP Last Admin: 09/10/18 22:14 Dose: 10 mg Doxycycline Hyclate (Doryx) 100 mg PO Q12H SKIP; Protocol Last Admin: 09/11/18 10:04 Dose: 100 mg Enoxaparin Sodium (Lovenox) 40 mg SC DAILY [facility] Last Admin: 09/11/18 10:05 Dose: 40 mg Hydromorphone HCl (Dilaudid) 2 mg IVP Q4 PRN PRN Reason: Pain, severe (8-10) Last Admin: 09/08/18 06:12 Dose: 2 mg Meropenem 1 gm/ Sodium (Chloride) 100 mls @ 100 mls/hr IVPB Q8H SKIP; Protocol Last Admin: 09/11/18 16:58 Dose: 100 mls/hr Oxycodone/Acetaminophen (Percocet 5/325 Mg Tab) 1 tab PO Q4H PRN PRN Reason: Pain, moderate (4-7) Stop: 09/14/18 17:20 - Labs Labs: 09/09/18 07:09 09/08/18 08:07 - Constitutional Appears: Non-toxic, No Acute Distress, Chronically Ill - Head Exam Head Exam: ATRAUMATIC, NORMAL INSPECTION, NORMOCEPHALIC - Eye Exam Eye Exam: EOMI, Normal appearance, PERRL Pupil Exam: NORMAL ACCOMODATION, PERRL - ENT Exam ENT Exam: Mucous Membranes Moist, Normal Exam - Neck Exam Neck Exam: Full ROM, Normal Inspection. absent: Lymphadenopathy - Respiratory Exam Respiratory Exam: Clear to Ausculation Bilateral, NORMAL BREATHING PATTERN - Cardiovascular Exam Cardiovascular Exam: REGULAR RHYTHM, +S1, +S2. absent: Murmur - GI/Abdominal Exam GI & Abdominal Exam: Soft, Normal Bowel Sounds. absent: Tenderness - Rectal Exam Rectal Exam: Deferred - Exam Exam: Scrotal Swelling Speculum exam: NORMAL SPECULUM EXAM Bimanual exam: NORMAL BIMANUAL EXAM - Extremities Exam Extremities Exam: Full ROM, Normal Capillary Refill, Normal Inspection. absent: Joint Swelling, Pedal Edema - Back Exam Back Exam: NORMAL INSPECTION - Neurological Exam Neurological Exam: Alert, Awake, CN II-XII Intact, Normal Gait, Oriented x3 - Psychiatric Exam Psychiatric exam: Normal Affect, Normal Mood - Skin Skin Exam: Dry, Intact, Normal Color, Warm Assessment and Plan (1) Epididymitis Status: Acute (2) Intractable pain Status: Acute (3) Orchitis and epididymitis Status: Acute - Assessment and Plan (Free Text) Assessment: cont IV antibiotics'may need long terem RX
[2018-09-11] MEDS: Bisacodyl 5mg EC Tab PO SCH (21:44)
[2018-09-12] MEDS: Meropenem 1 GM in Sodium Chloride 0.9% 100 ML IVPB SCH ×3 (01:03→18:12)
--- NOTE | 2018-09-12 03:04 | CON ---
DATE: 09/11/2018 The patient was admitted with severe epididymitis and uncontrollable pain, started on antibiotics and pain killers, improved mildly, but he still has the pain continuously. Ultrasound revealed the epididymitis before. CAT scan was suspicious, but did not confirm any abscess. Repeat ultrasound of the scrotum today showed possible area of abscess in the right scrotum. His white count dropped partially to 15,000, but still high. Physical exam, tenderness of the epididymis. I will evaluate him in the morning and if he continues to have pain maybe I will drain the scrotum. Marilyn Roy MD
[2018-09-12] MEDS: Enoxaparin 40 mg Syringe SC SCH ×2 (10:37→13:19)
--- NOTE | 2018-09-12 12:44 | CP.PCM.PN ---
Subjective - Date & Time of Evaluation Date of Evaluation: 09/12/18 Time of Evaluation: 07:00 - Subjective Subjective: improving on IV rx Objective - Vital Signs/Intake and Output Vital Signs (last 24 hours): Temp Pulse Resp BP Pulse Ox 98.4 F 76 20 131/75 95 09/12/18 08:05 09/12/18 08:05 09/12/18 08:05 09/12/18 08:05 09/12/18 08:05 Intake and Output: 09/12/18 09/12/18 06:59 18:59 Intake Total 580 Output Total 700 Balance -120 - Medications Medications: Current Medications Albuterol/Ipratropium (Duoneb 3 Mg/0.5 Mg (3 Ml) Ud) 3 ml INH RQ6 PRN PRN Reason: atelectasis Last Admin: 09/09/18 13:30 Dose: 3 ml Bisacodyl (Dulcolax) 10 mg PO HS SKIP Last Admin: 09/11/18 21:44 Dose: Not Given Doxycycline Hyclate (Doryx) 100 mg PO Q12H SKIP; Protocol Last Admin: 09/12/18 10:32 Dose: 100 mg Enoxaparin Sodium (Lovenox) 40 mg SC DAILY SKIP Last Admin: 09/12/18 10:37 Dose: Not Given Hydromorphone HCl (Dilaudid) 2 mg IVP Q4 PRN PRN Reason: Pain, severe (8-10) Last Admin: 09/08/18 06:12 Dose: 2 mg Meropenem 1 gm/ Sodium (Chloride) 100 mls @ 100 mls/hr IVPB Q8H SKIP; Protocol Last Admin: 09/12/18 10:30 Dose: 100 mls/hr Oxycodone/Acetaminophen (Percocet 5/325 Mg Tab) 1 tab PO Q4H PRN PRN Reason: Pain, moderate (4-7) Stop: 09/14/18 17:20 - Labs Labs: 09/09/18 07:09 09/08/18 08:07 - Constitutional Appears: Well - Head Exam Head Exam: ATRAUMATIC, NORMAL INSPECTION, NORMOCEPHALIC - Eye Exam Eye Exam: EOMI, Normal appearance, PERRL Pupil Exam: NORMAL ACCOMODATION, PERRL - ENT Exam ENT Exam: Mucous Membranes Moist, Normal Exam - Neck Exam Neck Exam: Full ROM, Normal Inspection. absent: Lymphadenopathy - Respiratory Exam Respiratory Exam: Clear to Ausculation Bilateral, NORMAL BREATHING PATTERN - Cardiovascular Exam Cardiovascular Exam: REGULAR RHYTHM, +S1, +S2. absent: Murmur - GI/Abdominal Exam GI & Abdominal Exam: Soft, Normal Bowel Sounds. absent: Tenderness - Rectal Exam Rectal Exam: Deferred - Exam Exam: Scrotal Swelling. absent: Uretheral Discharge - Extremities Exam Extremities Exam: Full ROM, Normal Capillary Refill, Normal Inspection. absent: Joint Swelling, Pedal Edema - Back Exam Back Exam: NORMAL INSPECTION - Neurological Exam Neurological Exam: Alert, Awake, CN II-XII Intact, Normal Gait, Oriented x3 - Psychiatric Exam Psychiatric exam: Normal Affect, Normal Mood - Skin Skin Exam: Dry, Intact, Normal Color, Warm Assessment and Plan (1) Epididymitis Status: Acute (2) Intractable pain Status: Acute (3) Orchitis and epididymitis Status: Acute - Assessment and Plan (Free Text) Assessment: d/c on Invanz 1 g IV daily
--- NOTE | 2018-09-12 13:24 | PN ---
DATE: 09/12/2018 The patient admitted with right epididymitis and intractable pain. He is on antibiotic IV. The pain improved. The patient still has some burning in the scrotum but no pain. He is not using painkiller. Still has elevated white count which we are going to repeat the CBC and see what is the difference. The repeat ultrasound show swelling of the head of the epididymitis, it is 3 x 4 cm, could in the future change to abscess, but physical exam show no collection to drain. The recommendation from Dr. Ren to give him antibiotic IV at home. We will insert the PICC line, repeat the CBC and comp and if he is stable will be discharged by the end of the week by Saturday to have the antibiotic done daily. Marilyn Roy MD
[2018-09-12 13:57] LABS: BASO % 0.5 % (0.0-2.0); EOS # 0.1 K/uL (0.0-0.7); EOS % 1.5 % (0.0-4.0); HEMOGLOBIN 14.1 g/dL (12.0-18.0); LYMPH # 1.6 K/uL (1.0-4.3); LYMPH % 15.9 % (20.0-40.0); MEAN CELL VOLUME 86.1 fL (80.0-94.0); MEAN CORPUSCULAR HEMOGLOBIN 29.7 pg (27.0-31.0); MEAN CORPUSCULAR HGB CONC 34.5 g/dL (33.0-37.0); MEAN PLATELET VOLUME 8.2 fL (7.2-11.7); MONO # 0.5 K/uL (0.0-0.8); MONO % 5.4 % (0.0-10.0); NEUT # 7.6 K/uL (1.8-7.0); NEUT % 76.7 % (50.0-75.0); NRBC % 0.1 % (0.0-2.0); RBC 4.76 Mil/uL (4.40-5.90); WHITE BLOOD COUNT 9.9 K/uL (4.8-10.8)
--- NOTE | 2018-09-12 14:49 | RAD ---
Date of service: 09/12/2018 HISTORY: verify right PICC COMPARISON: No prior. TECHNIQUE: 1 view obtained. FINDINGS: LUNGS: Poor inspiration with low lung volumes crowded bronchovascular markings and minor bibasilar atelectasis PLEURA: No significant pleural effusion identified, no pneumothorax apparent. CARDIOVASCULAR: No aortic atherosclerotic calcification present. Normal cardiac size. No pulmonary vascular congestion. OSSEOUS STRUCTURES: No significant abnormalities. VISUALIZED UPPER ABDOMEN: Normal. OTHER FINDINGS: None. IMPRESSION: Poor inspiration with low lung volumes crowded bronchovascular markings and mild bibasilar atelectasis.
[2018-09-12] MEDS: Bisacodyl 5mg EC Tab PO SCH (21:19)
[2018-09-13] MEDS: Meropenem 1 GM in Sodium Chloride 0.9% 100 ML IVPB SCH ×2 (00:36→10:04)
[2018-09-13 02:58] VITALS: PULSE 78
[2018-09-13 08:34] VITALS: BP 127/78; RESP 20; TEMP 98.3; O2SAT 96
[2018-09-13] MEDS: Enoxaparin 40 mg Syringe SC SCH (10:04)
--- NOTE | 2018-09-13 14:31 | CP.PCM.PN ---
Subjective - Date & Time of Evaluation Date of Evaluation: 09/13/18 Time of Evaluation: 14:31 - Subjective Subjective: PATIENT SEEN AND EXAMINED AT THE BEDSIDE Objective - Vital Signs/Intake and Output Vital Signs (last 24 hours): Temp Pulse Resp BP Pulse Ox 98.3 F 78 20 127/78 96 09/13/18 08:33 09/13/18 08:33 09/13/18 08:33 09/13/18 08:33 09/13/18 08:33 - Medications Medications: Current Medications Bisacodyl (Dulcolax) 10 mg PO HS SKIP Last Admin: 09/12/18 21:19 Dose: Not Given Doxycycline Hyclate (Doryx) 100 mg PO Q12H SKIP; Protocol Last Admin: 09/13/18 10:04 Dose: 100 mg Enoxaparin Sodium (Lovenox) 40 mg SC DAILY SKIP Last Admin: 09/13/18 10:04 Dose: Not Given Meropenem 1 gm/ Sodium (Chloride) 100 mls @ 100 mls/hr IVPB Q8H SKIP; Protocol Last Admin: 09/13/18 10:04 Dose: 100 mls/hr Oxycodone/Acetaminophen (Percocet 5/325 Mg Tab) 1 tab PO Q4H PRN PRN Reason: Pain, moderate (4-7) Stop: 09/14/18 17:20 - Labs Labs: 09/12/18 13:44 09/08/18 08:07 Assessment and Plan - Assessment and Plan (Free Text) Assessment: FOLLOW UP WITH DR SCHWARZ IN HIS OFFICE -----CALL FOR APPOINTMENT FOLLOW UP WITH DR HURD IN HIS OFFICE -----CALL FOR APPOINTMENT CONTINUE HOME MEDICATION NEW PRESCRIPTION GIVEN BY ID INVANZ 1 G IVPB DAILY ACTIVITY TOLERATED CALL DR SCHWARZ OR GO TO THE EMERGENCY ROOM IF SYMPTOM RETURN OR WORSENING
== END 2018-09-13 14:51 | disposition home or self-care (01) | DRG 728 ==
LOC: C.ER 19:28 → C.9E 23:00 → C.6T 23:37 → OBSVTOIN 09-08 11:02 → UNDODISIN 09-13 14:39
PROVIDERS: ADMIT Specialist; ATTEND Specialist
DX: N45.3 Epididymo-orchitis (principal); N43.3 Hydrocele, unspecified; N30.90 Cystitis, unspecified without hematuria; N49.2 Inflammatory disorders of scrotum; N40.0 Benign prostatic hyperplasia without lower urinary tract symptoms; K59.00 Constipation, unspecified; I10 Essential (primary) hypertension; Z87.891 Personal history of nicotine dependence; Z87.442 Personal history of urinary calculi